=== PATIENT | male | born 1970 | race African-American/Black ===

== ENCOUNTER 2018-04-25 08:22 | Day surgery (SDC) | payer BC ==
[2018-04-22 08:30] VITALS: BMI 44.0
--- NOTE | 2018-04-25 10:45 | OP ---
DATE OF PROCEDURE: 04/25/2018 PROCEDURE: Esophagogastroduodenoscopy with snare polypectomy and biopsy. PREOPERATIVE DIAGNOSIS: Colon cancer screening. PROCEDURE IN DETAIL: Informed consent was obtained from the patient. He was sedated with total intr avenous anesthesia. The rectal exam was performed and was normal. The preparation quality was good. The colonoscope was advanced to the cecum without difficulty. The ileocecal valve and appendiceal orifice were clearly identified. A 3 mm polyp was removed by cold biopsy forceps from the transverse colon. A 4 mm polyp was removed by cold snare polypectomy from the descending colon. The remainder of the colonic mucosa was normal. Retroflexed views in the rectum were normal. IMPRESSION: 1. Small transverse colon polyp removed by cold biopsy forceps. 2. A 4 mm descending polyp removed by cold snare polypectomy. 3. Otherwise normal colonoscopy. RECOMMENDATIONS: 1. Repeat colonoscopy in 5 years if either polyp is an adenoma. 2. Repeat colonoscopy in 10 years if both polyps are hyperplastic or normal.
[2018-04-25] MEDS ORDERED: PROPOFOL 200 MG/20 ML VIAL ONE (11:37)
== END 2018-04-25 11:07 | disposition home or self-care (01) ==
LOC: SDC 08:22
PROVIDERS: ATTEND Internal Medicine Gastroenterology
PROC: 0DBM8ZX Excision of Descending Colon, Via Natural or Artificial Opening Endoscopic, Diagnostic (ICD-10-PCS; principal; 2018-04-25)
PROC: 0DBL8ZX Excision of Transverse Colon, Via Natural or Artificial Opening Endoscopic, Diagnostic (ICD-10-PCS; principal; 2018-04-25)
DX: Z12.11 Encounter for screening for malignant neoplasm of colon (principal); D12.3 Benign neoplasm of transverse colon; K63.5 Polyp of colon; G47.30 Sleep apnea, unspecified; I10 Essential (primary) hypertension; Z79.899 Other long term (current) drug therapy
CPT/HCPCS: 88305; J2704

== ENCOUNTER 2022-01-15 12:06 | Outpatient (CLI) | payer OTHER ==
[2022-01-15 14:16] LABS: Hemoglobin 15.5 g/dL (13.5-17.5); Mean Corpuscular HGB CONC 31.7 g/dL (32.0-36.0); Mean Corpuscular Hemoglobin 27.2 pg (27.0-33.0); Mean Corpuscular Volume 85.9 fl (81.2-95.1); Mean Platelet Volume 10.9 fl (7.4-10.4); Platelet Count 192 10x3/uL (150-450); RBC Distribution Width 13.2 % (11.5-14.5); Red Blood Cell (RBC) Count 5.69 10x6/uL (4.32-5.72); White Blood Cell (WBC) Count 5.7 10x3/uL (3.5-10.5)
[2022-01-15 14:24] LABS: Bilirubin Neg (Negative); Blood, Urine Negative (Negative); Clarity Clear (Clear); Glucose, Urine (Dipstick) Normal (Negative); Ketone, Urine Negative (Negative); Leukocyte Negative (Negative); Nitrite Negative (Negative); Protein, Urine (Dipstick) Negative (Neg-Trace); Urobilinogen Normal mg/dL (Less than 2)
[2022-01-15 14:27] LABS: Anion Gap 12 mmol/L (10-20); BUN (Urea Nitrogen) 13 mg/dL (8.4-25.7); Calc. Creatinine Clearance 0 mL/min (70-130); Calcium 9.2 mg/dL (7.8-10.44); Carbon Dioxide 24 mmol/L (22-29); Chloride 108 mmol/L (98-107); Glucose 89 mg/dL (70-105); Potassium 4.4 mmol/L (3.5-5.1); Sodium 140 mmol/L (136-145)
[2022-01-15 14:50] LABS: Bacteria/HPF 2+ HPF (None Seen); RBC/HPF 0-3 HPF (0-3); Squamous Epithelial 0-3 HPF (0-3); WBC/HPF 0-3 HPF (0-3)
[2022-01-15 14:51] LABS: Mucous/LPF 2+ LPF (<2+)
[2022-01-16 00:52] LABS: SARS-CoV-2 PCR by NAA Not Detected (NotDetected)
== END 2022-01-15 12:07 | disposition home or self-care (01) ==
LOC: LABBT 12:06
PROVIDERS: ATTEND Urology
DX: Z01.818 Encounter for other preprocedural examination (principal); N40.1 Benign prostatic hyperplasia with lower urinary tract symptoms; Z20.822 Contact with and (suspected) exposure to COVID-19
CPT/HCPCS: 80048; 81001; 85027; 87086; 93005; 93010; U0003; U0005

== ENCOUNTER 2022-01-20 05:37 | Day surgery (SDC) | payer OTHER ==
[2022-01-16 14:25] VITALS: BMI 46.0
[2022-01-20] MEDS ORDERED: Lidocaine 1% MPF 2 ML VIAL ONE (06:21)
[2022-01-20] MEDS ORDERED: Levofloxacin 500 mg/D5W 100 ml Premix Bag ONE (06:21)
[2022-01-20] MEDS ORDERED: Promethazine HCl 25 MG/ML VIAL ONE (06:32)
[2022-01-20] MEDS ORDERED: Fentanyl 250 MCG/5 ML VIAL ONE (06:32)
[2022-01-20] MEDS ORDERED: PROPOFOL 200 MG/20 ML VIAL ONE (07:28)
[2022-01-20] MEDS ORDERED: Dexamethasone 20 MG/5 ML VIAL ONE (07:28)
[2022-01-20] MEDS ORDERED: Lidocaine 1% PF 5 ML VIAL ONE (07:28)
[2022-01-20] MEDS ORDERED: Labetalol HCl 100 MG/20 ML VIAL ONE ×2 (07:28→09:17)
[2022-01-20] MEDS ORDERED: Ondansetron PF 4 MG/2 ML Vial ONE (07:28)
[2022-01-20] MEDS ORDERED: Ketorolac Tromethamine 30 MG/ML VIAL ONE ×2 (07:28→09:22)
[2022-01-20] MEDS ORDERED: Meperidine HCl/PF 25 MG/ML VIAL ONE (09:07)
[2022-01-20] MEDS ORDERED: Oxybutynin 5 MG TAB ONE (09:22)
[2022-01-20] MEDS ORDERED: Phenazopyridine HCl 100 MG TAB ONE (09:22)
[2022-01-20] MEDS ORDERED: hydrALAZINE 20 MG/ML VIAL ONE (09:35)
== END 2022-01-20 11:19 | disposition home or self-care (01) ==
LOC: SDC 05:37
PROVIDERS: ATTEND Urology
PROC: 0VT08ZZ Resection of Prostate, Via Natural or Artificial Opening Endoscopic (ICD-10-PCS; principal; 2022-01-20)
DX: N40.1 Benign prostatic hyperplasia with lower urinary tract symptoms (principal); N13.8 Other obstructive and reflux uropathy; R39.15 Urgency of urination; R35.0 Frequency of micturition; R35.1 Nocturia; I10 Essential (primary) hypertension; E11.9 Type 2 diabetes mellitus without complications; N32.81 Overactive bladder; Z79.84 Long term (current) use of oral hypoglycemic drugs; Z79.899 Other long term (current) drug therapy
CPT/HCPCS: 88305; J0360; J1100; J1885; J1956; J2175; J2405; J2550; J2704; J3010

== ENCOUNTER 2023-08-04 06:05 | Day surgery (SDC) | payer OTHER ==
[2023-08-03 09:55] VITALS: BMI 46.0
[2023-08-04] MEDS ORDERED: PROPOFOL 60 ML ONE (07:22)
[2023-08-04] MEDS ORDERED: Lidocaine 1% PF 5 ML VIAL ONE (07:24)
[2023-08-04] MEDS ORDERED: Glycopyrrolate 0.2 MG/ML 5 ML SYRINGE ONE (07:35)
== END 2023-08-04 09:00 | disposition home or self-care (01) ==
LOC: SDC 06:05
PROVIDERS: ATTEND Internal Medicine Gastroenterology
PROC: 0DJD8ZZ Inspection of Lower Intestinal Tract, Via Natural or Artificial Opening Endoscopic (ICD-10-PCS; principal; 2023-08-04)
DX: Z12.11 Encounter for screening for malignant neoplasm of colon (principal); K57.30 Diverticulosis of large intestine without perforation or abscess without bleeding; E10.9 Type 1 diabetes mellitus without complications; E78.5 Hyperlipidemia, unspecified; I10 Essential (primary) hypertension; G47.33 Obstructive sleep apnea (adult) (pediatric); Z86.010 Personal history of colon polyps; Z79.84 Long term (current) use of oral hypoglycemic drugs; Z79.899 Other long term (current) drug therapy; Z88.8 Allergy status to other drugs, medicaments and biological substances
CPT/HCPCS: J2704